=== PATIENT | female | born 1965 | race American Indian/Alaskan Native ===

== ENCOUNTER 2018-03-21 05:56 | Emergency (ER) | payer SELFPAY ==
[2018-03-21] MEDS ORDERED: PEPCID IV ONE (06:22)
[2018-03-21] MEDS ORDERED: BENADRYL IV ONE (06:22)
[2018-03-21] MEDS ORDERED: DECADRON IV ONE (06:22)
--- NOTE | 2018-03-21 06:22 | Emergency Department Report ---
HPI - General Chief Complaint: Allergic Reaction Time Seen by Provider: 03/21/18 06:17 - HPI HPI: Room 4 52-year-old female presenting with chief complaint of allergic reaction. 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 The patient states she applied some hydrocortisone cream and then noticed on the right side of her mouth and throat began to feel "itchy." Patient states she then developed difficulty swallowing and a hoarse voice. Patient denies any known new exposures Location: [See above] Duration: Approximately one hour Quality: Allergic Severity: Moderate Modifying factors: [see above] Context: [see above] Mode of transportation: [not driving] ED Past Medical Hx - Past Medical History Previous Medical History?: Yes Hx Hypertension: Yes (only takes Maxzide) Hx Asthma: Yes Additional medical history: HYPOTHYROID - Surgical History Past Surgical History?: Yes Hx Cholecystectomy: Yes (laparoscopically) - Family History Family history: no significant - Social History Smoking Status: Never Smoker Substance Use Type: Alcohol (occasional) - Medications Home Medications: Home Medications Medication Instructions Recorded Confirmed Last Taken Type EPINEPHrine [Epipen 2-Yuriy] 0.3 mg IM ONCE PRN #0.6 ml 03/21/18 Unknown Rx Famotidine [Pepcid] 20 mg PO BID #6 tablet 03/21/18 Unknown Rx Prednisone [predniSONE 10 mg 10 mg PO .TAPER #1 tab.ds.pk 03/21/18 Unknown Rx (6-Day Pack, 21 Tabs)] diphenhydrAMINE [Benadryl CAP] 50 mg PO Q6HR #24 capsule 03/21/18 Unknown Rx ED Review of Systems ROS: Stated complaint: POSS ALLERGIC REACTION Other details as noted in HPI Constitutional: no symptoms reported Eyes: denies: eye pain ENT: other ("itchy" throat) Respiratory: no symptoms reported Cardiovascular: denies: chest pain Endocrine: no symptoms reported Gastrointestinal: denies: abdominal pain Genitourinary: denies: dysuria Musculoskeletal: denies: back pain Skin: rash, pruritus Neurological: denies: headache Physical Exam - Physical Exam Vital Signs: Vital Signs 03/21/18 03/21/18 05:58 06:07 Temperature 97.6 F 97.7 F Pulse Rate 104 H 94 H Respiratory 20 19 Rate Blood Pressure 161/99 Blood Pressure 154/100 [Left] O2 Sat by Pulse 97 99 Oximetry Physical Exam: GENERAL: The patient is well-developed well-nourished female lying on stretcher with a hoarse voice not appearing to be in acute distress. [] HEENT: Normocephalic. Atraumatic. Extraocular motions are intact. Patient has moist mucous membranes. NECK: Supple. Trachea midline. No stridor CHEST/LUNGS: Clear to auscultation. There is no respiratory distress noted. HEART/CARDIOVASCULAR: Regular. There is no tachycardia. There is no gallop rub or murmur. ABDOMEN: Abdomen is soft, nontender. Patient has normal bowel sounds. There is no abdominal distention. SKIN: There is faint urticaria bilateral upper extremities. There is no edema. There is no diaphoresis. NEURO: The patient is awake, alert, and oriented. The patient is cooperative. The patient has normal speech MUSCULOSKELETAL: There is no evidence of acute injury. ED Course Vital Signs 03/21/18 03/21/18 05:58 06:07 Temperature 97.6 F 97.7 F Pulse Rate 104 H 94 H Respiratory 20 19 Rate Blood Pressure 161/99 Blood Pressure 154/100 [Left] O2 Sat by Pulse 97 99 Oximetry - Reevaluation(s) Reevaluation #1: 03/21/18 07:31 The patient states she feels slightly improved. Patient states she does not wish to be admitted to the hospital ED Medical Decision Making - Radiology Data Radiology results: image reviewed (lateral soft tissue neck x-ray) interpreted by me: Lateral soft tissue neck x-ray-no evidence of epiglottitis, no prevertebral swelling. Airway patent - Differential Diagnosis allergic reaction Critical care attestation.: If time is entered above; I have spent that time in minutes in the direct care of this critically ill patient, excluding procedure time. ED Disposition Clinical Impression: Acute allergic reaction Disposition: DC-01 TO HOME OR SELFCARE Is pt being admited?: No Does the pt Need Aspirin: No Condition: Stable Instructions: Anaphylaxis (ED) Additional Instructions: Return to the emergency department immediately should you develop worsening symptoms, fever, inability to tolerate food or liquid or any other concerns. Prescriptions: diphenhydrAMINE [Benadryl CAP] 50 mg PO Q6HR #24 capsule EPINEPHrine [Epipen 2-Yuriy] 0.3 mg IM ONCE PRN #0.6 ml PRN Reason: Shortness Of Breath Famotidine [Pepcid] 20 mg PO BID #6 tablet Prednisone [predniSONE 10 mg (6-Day Pack, 21 Tabs)] 10 mg PO .TAPER #1 tab.ds.pk Referrals: VEE SANABRIA MD [Staff Physician] - [facility] (Dr Sanabria is an director group sales. Please follow up with her for further evaluation) Time of Disposition: 07:33
[2018-03-21 07:50] VITALS: BP 146/95
--- NOTE | 2018-03-21 07:54 | XRay Report ---
AP AND LATERAL SOFT TISSUES OF THE NECK: History: Allergic reaction, hoarseness. The contour of the upper airway appears within normal limits. The epiglottis is not enlarged. No prevertebral soft tissue swelling is apparent. No mass density or foreign body is evident. Moderate to severe degenerative disc disease at C6-7. IMPRESSION: Normal study.
== END 2018-03-21 08:14 | disposition home or self-care (01) ==
LOC: ED 05:56
DX: T78.40XA Allergy, unspecified, initial encounter (principal); L29.9 Pruritus, unspecified; J45.909 Unspecified asthma, uncomplicated; E03.9 Hypothyroidism, unspecified; Y92.89 Other specified places as the place of occurrence of the external cause
CPT/HCPCS: 70360; 94640; 96374; 96375; 99283; J1100; J1200

== ENCOUNTER 2018-04-17 09:38 | Emergency (ER) | payer BC, OTHER ==
[2018-04-17 09:45] VITALS: BP 159/94
[2018-04-17] MEDS ORDERED: PEPCID IV ONE (10:11)
[2018-04-17] MEDS ORDERED: SOLU-Medrol IV ONE (10:11)
--- NOTE | 2018-04-17 10:23 | Emergency Department Report ---
ED Allergic Reaction HPI - General Chief complaint: Allergic Reaction Stated complaint: ALLERGIC REACTION Time Seen by Provider: 04/17/18 10:07 Source: patient Mode of arrival: Ambulatory Limitations: No Limitations - History of Present Illness Initial Comments: 52-year-old female presents to the ED with complaint of allergic reaction since this morning. Patient states approximately 2 hours ago she began developing hives and had minor swelling and itching to the right side of her face and mouth. Patient states she took 2 Benadryl prior to coming to the ED. Patient reports similar occurrence one month ago, unknown trigger today and also at that time. Patient states she has not seen an director chemistry yet. MD Complaint: allergic reaction -: hour(s) (2) Exposure: unknown Symptoms: rash, itching, facial swelling Severity: mild Treatment Prior to Arrival: benadryl Previous Allergy History: prior ED visit(s) - Related Data Previous Rx's Medication Instructions Recorded Last Taken Type EPINEPHrine [Epipen 2-Yuriy] 0.3 mg IM ONCE PRN #0.6 ml 03/21/18 Unknown Rx Famotidine [Pepcid] 20 mg PO BID #6 tablet 03/21/18 Unknown Rx Prednisone [predniSONE 10 mg 10 mg PO .TAPER #1 tab.ds.pk 03/21/18 Unknown Rx (6-Day Pack, 21 Tabs)] diphenhydrAMINE [Benadryl CAP] 50 mg PO Q6HR #24 capsule 03/21/18 Unknown Rx predniSONE [Prednisone] 50 mg PO DAILY #5 tablet 04/17/18 Unknown Rx Allergies Allergy/AdvReac Type Severity Reaction Status Date / Time No Known Allergies Allergy Verified 04/17/18 09:41 ED Review of Systems ROS: Stated complaint: ALLERGIC REACTION Other details as noted in HPI Comment: All other systems reviewed and negative Respiratory: denies: shortness of breath, stridor, wheezing Gastrointestinal: denies: nausea, vomiting Skin: rash ED Past Medical Hx - Past Medical History Hx Hypertension: Yes (only takes Maxzide) Hx Asthma: Yes Additional medical history: HYPOTHYROID - Surgical History Hx Cholecystectomy: Yes (laparoscopically) Additional Surgical History: LAP LAUREL - Social History Smoking Status: Never Smoker - Medications Home Medications: Home Medications Medication Instructions Recorded Confirmed Last Taken Type EPINEPHrine [Epipen 2-Yuriy] 0.3 mg IM ONCE PRN #0.6 ml 03/21/18 Unknown Rx Famotidine [Pepcid] 20 mg PO BID #6 tablet 03/21/18 Unknown Rx Prednisone [predniSONE 10 mg 10 mg PO .TAPER #1 tab.ds.pk 03/21/18 Unknown Rx (6-Day Pack, 21 Tabs)] diphenhydrAMINE [Benadryl CAP] 50 mg PO Q6HR #24 capsule 03/21/18 Unknown Rx predniSONE [Prednisone] 50 mg PO DAILY #5 tablet 04/17/18 Unknown Rx ED Physical Exam - General Limitations: No Limitations General appearance: alert, in no apparent distress - Head Head exam: Present: atraumatic, normocephalic - Eye Eye exam: Present: normal appearance - ENT ENT exam: Present: normal orophraynx, mucous membranes moist - Neck Neck exam: Present: normal inspection - Respiratory Respiratory exam: Present: normal lung sounds bilaterally. Absent: respiratory distress, wheezes, stridor - Cardiovascular Cardiovascular Exam: Present: regular rate, normal rhythm - GI/Abdominal GI/Abdominal exam: Present: soft. Absent: distended, tenderness - Extremities Exam Extremities exam: Present: normal inspection - Neurological Exam Neurological exam: Present: alert, oriented X3 - Psychiatric Psychiatric exam: Present: normal affect, normal mood - Skin Skin exam: Present: urticaria ED Course Vital Signs 04/17/18 09:44 Temperature 98.5 F Pulse Rate 97 H Respiratory 20 Rate Blood Pressure 159/94 [Left] O2 Sat by Pulse 97 Oximetry ED Medical Decision Making - Medical Decision Making Urticarial rash resolved. Patient comfortable. Will discharge at this time. Return precautions given. Outpatient follow-up w/ director chemistry advised. - Differential Diagnosis allergic reaction Critical care attestation.: If time is entered above; I have spent that time in minutes in the direct care of this critically ill patient, excluding procedure time. ED Disposition Clinical Impression: Allergic reaction Disposition: DC-01 TO HOME OR SELFCARE Is pt being admited?: No Condition: Stable Instructions: Allergies (ED) Prescriptions: predniSONE [Prednisone] 50 mg PO DAILY #5 tablet Referrals: PRIMARY CARE,MD [Primary Care Provider] - 3-5 Days Forms: Work/School Release Form(ED) Time of Disposition: 11:29
== END 2018-04-17 11:57 | disposition home or self-care (01) ==
LOC: ED 09:38
DX: T78.40XA Allergy, unspecified, initial encounter (principal); I10 Essential (primary) hypertension; J45.909 Unspecified asthma, uncomplicated; Z90.49 Acquired absence of other specified parts of digestive tract; X58.XXXA Exposure to other specified factors, initial encounter; Y93.89 Activity, other specified; Y92.89 Other specified places as the place of occurrence of the external cause; Y99.8 Other external cause status
CPT/HCPCS: 96374; 96375; 99282; J2930

== ENCOUNTER 2018-09-07 22:03 | Emergency (ER) | payer BC ==
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
[2018-09-07 22:29] VITALS: BP 156/106
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
== END 2018-09-08 00:26 | disposition home or self-care (01) ==
LOC: ED 22:03
DX: M25.552 Pain in left hip (principal); M79.642 Pain in left hand; V29.9XXA Motorcycle rider (driver) (passenger) injured in unspecified traffic accident, initial encounter; Y93.89 Activity, other specified; Y92.488 Other paved roadways as the place of occurrence of the external cause; Y99.8 Other external cause status
CPT/HCPCS: 99283